=== PATIENT | male | born 1990 | race Caucasian/White ===

== ENCOUNTER 2022-05-15 19:16 | Emergency (ER) | payer MEDICAID ==
[~2022-05-15] VITALS: Ht 167.6 cm; Wt 73.0 kg
[2022-05-15 19:40] VITALS: BP 129/84
== END 2022-05-16 03:59 | disposition left against medical advice (07) ==
LOC: ER 19:16
DX: Z53.21 Procedure and treatment not carried out due to patient leaving prior to being seen by health care provider (principal); F41.0 Panic disorder [episodic paroxysmal anxiety]
CPT/HCPCS: 99281